=== PATIENT | female | born 1995 | race Caucasian/White ===

== ENCOUNTER 2016-07-03 16:26 | Emergency (ER) | payer SELFPAY ==
[2016-07-03 16:32] VITALS: BMI 25.4
--- NOTE | 2016-07-03 17:05 | DR.GENAD ---
HPI - PCP Primary Care Physician: ARNOLD - Complaint/Symptoms Chief Complaint Doctors Comments: BOTH KNEES ARE HURTING. SKIN HAVE RETICULAR FORMATION. PAINFUL. Chief Complaint:: "KNEE PAIN" - Nurses notes reviewed Nurses Notes Review: Yes - Source History Provided: Patient - Mode of Arrival Mode of Arrival: Ambulatory - Timing Onset of Chief Complaint: 06/19/16 Came on: Suddenly - Duration Duration: Constant Duration: Days - Severity Severity: Moderate PMH - PMH Past Medical History: No Past Surgical History: Yes Past Surgical History Comment: WISDOM TEETH - Family History History of Family Medical Conditions: Yes Family Medical History: Diabetes Mellitus - Social History Does patient currently use any type of tobacco product: Yes Have you used tobacco products in the last 12 months: Yes Type of Tobacco Use: Cigarettes How many years tobacco product used: 1 Does any household member use tobacco: No Alcohol Use: None Do you use any recreational Drugs:: No Lives With: Family Lives Where: Home - infectious screening In the last 2 months have you had wt loss of >10#?: NO Have you had fever, night sweats or hemotysis?: No Have you traveled outside the country in the last 6 months?: No Isolation: Standard ROS - Review of Systems Constitutional: No Symptoms Reported Eyes: No Symptoms Reported ENTM: No Symptoms Reported Respiratoy: No Symptoms Reported Cardiovascular: No Symptoms Reported Gastrointestinal/Abdominal: No Symptoms Reported Genitourinary: No Symptoms Reported Neurological: No Symptoms Reported Musculoskeletal: Knee (BILATERAL KNEE PAIN.) Integumentary: Other (RETICULAR FORMATION ) Hematologic/Lymphatic: Other (RETICULAR FORMATION WITH LARGE PATTERN THAT IS PAINFUL.) Endocrine: No Symptoms Reported All Other Systems: Reviewed and Negative PE - Vital Signs Vitals: Temperature 98.5 F Pulse Rate 104 Respiratory Rate 20 O2 Sat by Pulse Oximetry 126 - General Limitations: No Limitations General Appearance: Alert - Head Head Exam: Normal Inspection - Eyes Eye exam: Normal Appearance - ENT ENT Exam: Normal External Ear Exam TM/Canal Exam: Bilateral Normal Mouth Exam: Normal Inspection Throat Exam: Normal Inspection - Neck Neck Exam: Trachea Midline - Chest Chest Inspection: Symmetric Chest Wall Rise - Respiratory Respiratory Exam: Bilateral Clear to Auscultation - Cardiovascular Cardiovascular Exam: Regular Rate, Normal Rhythm, Normal Heart Sounds - Abdominal Exam Abdominal Exam: Normal Bowel Sounds, Soft. negative: Tenderness - Extremities Extremities Exam: Tenderness, Joint Swelling (BILATERAL KNEES) - Back Back Exam: Normal Inspection - Neurologic Neurological Exam: Alert, Oriented X3 - Psychiatric Psychiatric Exam: Anxious - Skin Skin Exam: Other (RETICULAR FORMATION THAT IS PAINFUL.) MDM - Additional Information Additional Information Obtained From: Family - Differential Diagnosis Differential Diagnosis: KNEE SPRAIN, FRACTURE, RAYNAUDS PHENOMENON Course - Treatment Treatment: SEE ORDERS. - Education/Counseling Education/Counseling: Patient, Family, Education Educated On: Diagnosis, Needs for Follow Up ROR - Labs Reviewed Laboratory Results Reviewed?: Yes Result Diagrams: 07/03/16 17:18 07/03/16 17:18 Laboratory: WBC 7.2 X10^3/uL (3.6-10.0) 07/03/16 17:18 RBC 4.73 X10^6/uL (3.5-5.4) 07/03/16 17:18 Hgb 13.9 g/dL (12.0-16.0) 07/03/16 17:18 Hct 40.7 % (36.0-47.0) 07/03/16 17:18 MCV 86.1 fL (80.0-100.0) 07/03/16 17:18 MCH 29.3 pg (27.0-34.0) 07/03/16 17:18 MCHC 34.0 g/dL (33.0-35.0) 07/03/16 17:18 RDW 13.1 % (11.6-16.5) 07/03/16 17:18 Plt Count 208 X10^3/uL (150.0-450.0) 07/03/16 17:18 MPV 8.3 fL (7.4-11.0) 07/03/16 17:18 Neut % 59.8 % (42.0-75.0) 07/03/16 17:18 Lymph % 28.1 % (21.0-51.0) 07/03/16 17:18 Hall % 9.1 % (0.0-13.0) 07/03/16 17:18 Eos % 2.2 % (0.9-2.9) 07/03/16 17:18 Baso % 0.8 % (0.2-1.0) 07/03/16 17:18 Neut # 4.3 x10^3/uL (2.2-4.8) 07/03/16 17:18 Lymph # 2.0 X10^3/uL (1.3-2.9) 07/03/16 17:18 Hall # 0.7 x10^3/uL (0.3-0.8) 07/03/16 17:18 Eos # 0.2 x10^3/uL (0.0-0.2) 07/03/16 17:18 Baso # 0.1 X10^3/uL (0.0-0.1) 07/03/16 17:18 Absolute Nucleated RBC 0.1 /100WBC 07/03/16 17:18 INR Target Range - 07/03/16 17:18 INR 1.01 (0.8-1.3) 07/03/16 17:18 PTT 38.4 SECONDS (22.9-36.5) H 07/03/16 17:18 PTT Comment - 07/03/16 17:18 Sodium 144 mmol/L (136-145) 07/03/16 17:18 Corrected Sodium TNP 07/03/16 17:18 Potassium 3.5 mmol/L (3.5-5.1) 07/03/16 17:18 Chloride 107 mmol/L (98-107) 07/03/16 17:18 Carbon Dioxide 27.1 mmol/L (21-32) 07/03/16 17:18 BUN 11 mg/dL (7-18) 07/03/16 17:18 Creatinine 0.88 mg/dL (0.55-1.02) 07/03/16 17:18 Est GFR (MDRD) Af Amer > 60 (>60) 07/03/16 17:18 Est GFR (MDRD) Non-Af > 60 (>60) 07/03/16 17:18 Glucose 109 mg/dL (65-99) H 07/03/16 17:18 Calcium 8.9 mg/dL (8.5-10.1) 07/03/16 17:18 Corrected Calcium TNP 07/03/16 17:18 Total Bilirubin 0.60 mg/dL (0.2-1.0) 07/03/16 17:18 AST 19 Units/L (15-37) 07/03/16 17:18 ALT 18 Units/L (12-78) 07/03/16 17:18 Alkaline Phosphatase 61 Units/L (46-116) 07/03/16 17:18 Total Protein 7.5 g/dL (6.4-8.2) 07/03/16 17:18 Albumin 3.8 g/dL (3.4-5.0) 07/03/16 17:18 Globulin 3.7 g/dL (2.5-4.5) 07/03/16 17:18 Albumin/Globulin Ratio 1.0 Ratio (1.1-2.1) L 07/03/16 17:18 - XRAY XRAY Interpreted by: Radiologist XRAY Findings: REPORT DISCUSS WITH PATIENT AND HER MOTHER - Diagnosis Discharge Problem: Knee pain, bilateral Qualifiers: Chronicity: acute Qualified Code(s): M25.561 - Pain in right knee Raynaud phenomenon Qualifiers: Raynaud?s-associated gangrene presence: without gangrene Qualified Code(s): I73.00 - Raynaud's syndrome without gangrene - Discharge Plan Disposition: 01 HOME, SELF-CARE Condition: Stable Prescriptions: Ibuprofen [MOTRIN TAB 600 MG *] 600 mg PO TID PRN #30 tab PRN Reason: Pain/Inflammation - Follow ups/Referrals Follow ups/Referrals: ELOY BARRETT [Primary Care Provider] - 3 days - Instructions Instructions: Knee Pain, Raynaud Phenomenon Additional Instructions: RETURN TO ED IF WORSE.
[2016-07-03 17:30] LABS: BASOPHILS # (AUTO) 0.1 X10^3/uL (0.0-0.1); BASOPHILS % (AUTO) 0.8 % (0.2-1.0); EOSINOPHILS # (AUTO) 0.2 x10^3/uL (0.0-0.2); EOSINOPHILS % (AUTO) 2.2 % (0.9-2.9); HEMATOCRIT 40.7 % (36.0-47.0); HEMOGLOBIN 13.9 g/dL (12.0-16.0); LYMPHOCYTES % (AUTO) 28.1 % (21.0-51.0); MEAN CORPUSCULAR HEMOGLOBIN 29.3 pg (27.0-34.0); MEAN CORPUSCULAR VOLUME 86.1 fL (80.0-100.0); MEAN PLATELET VOLUME 8.3 fL (7.4-11.0); MONOCYTES # (AUTO) 0.7 x10^3/uL (0.3-0.8); MONOCYTES % (AUTO) 9.1 % (0.0-13.0); NEUTROPHILS # (AUTO) 4.3 x10^3/uL (2.2-4.8); NEUTROPHILS % (AUTO) 59.8 % (42.0-75.0); PLATELET COUNT 208 X10^3/uL (150.0-450.0); RED BLOOD COUNT 4.73 X10^6/uL (3.5-5.4); RED CELL DISTRIBUTION WIDTH 13.1 % (11.6-16.5); WHITE BLOOD COUNT 7.2 X10^3/uL (3.6-10.0)
[2016-07-03 17:43] LABS: ALANINE AMINOTRANSFERASE 18 Units/L (12-78); ALBUMIN 3.8 g/dL (3.4-5.0); ALKALINE PHOSPHATASE 61 Units/L (46-116); ASPARTATE AMINO TRANSFERASE 19 Units/L (15-37); BLOOD UREA NITROGEN 11 mg/dL (7-18); CALCIUM 8.9 mg/dL (8.5-10.1); CARBON DIOXIDE 27.1 mmol/L (21-32); CHLORIDE 107 mmol/L (98-107); CREATININE 0.88 mg/dL (0.55-1.02); GLUCOSE 109 mg/dL (65-99); SODIUM 144 mmol/L (136-145); TOTAL PROTEIN 7.5 g/dL (6.4-8.2); eGFR BLACK RACES > 60 (>60); eGFR NON BLACK RACES > 60 (>60)
[2016-07-03] MEDS ORDERED: TORADOL 60 MG VIAL IM ONE (18:17)
[2016-07-03] MEDS ORDERED: TORADOL 60 MG VIAL ONE (18:22)
--- NOTE | 2016-07-03 19:17 | RAD ---
KNEE RADIOGRAPHS CLINICAL HISTORY: 21-year-old female with bilateral knee pain with no known trauma. COMPARISON: None. FINDINGS: Frontal, lateral, oblique and sunrise views of the right knee demonstrate no acute fractur e or malalignment. There is no suprapatellar joint effusion. The medial and lateral joint spaces a re maintained. The mineralization is normal. There is no aggressive bone lesion or abnormal periost eal reaction. There is no soft tissue calcification or gas. IMPRESSION: No radiographic evidence for acute fracture or osseous abnormality of the right knee. Reported By:
--- NOTE | 2016-07-03 19:17 | RAD ---
KNEE RADIOGRAPHS CLINICAL HISTORY: 21-year-old female with no history trauma and bilateral knee pain. COMPARISON: None. FINDINGS: Frontal, lateral, oblique and sunrise views of the left knee demonstrate no acute fracture or malalignment. There is no suprapatellar joint effusion. The medial and lateral joint spaces ar e maintained. The mineralization is normal. There is no aggressive bone lesion or abnormal perioste al reaction. There is no soft tissue calcification or gas. IMPRESSION: No radiographic evidence for acute fracture or osseous abnormality of the left knee. Reported By:
== END 2016-07-03 18:58 | disposition home or self-care (01) ==
LOC: ER 16:35
DX: M25.561 Pain in right knee (principal); I73.00 Raynaud's syndrome without gangrene
CPT/HCPCS: 36415; 73564; 80053; 85025; 85610; 85730; 96372; 99283; J1885